=== PATIENT | male | born 1990 | race African-American/Black ===

== ENCOUNTER 2024-07-19 17:32 | Emergency (ER) | payer SELFPAY ==
[2024-07-19 17:38] VITALS: BP 146/78
[2024-07-19 18:26] LABS: ALT (SGPT) 20 U/L (0-50); AST (SGOT) 24 U/L (17-59); Albumin 4.8 g/dl (3.5-5.0); Alkaline Phosphatase 50 U/L (38-126); Blood Urea Nitrogen 10 mg/dl (9-20); Calcium 9.2 mg/dl (8.4-10.2); Carbon Dioxide 31 mmol/L (22-30); Chloride 99 mmol/L (98-107); Glucose 107 mg/dl (70-99); Potassium 4.1 mmol/L (3.5-5.1); Sodium 140 mmol/L (135-145); Total Bilirubin 0.7 mg/dl (0.2-1.3); Total Protein 7.5 g/dl (6.3-8.2); eGFR > 60.00
[2024-07-19 18:35] LABS: Troponin I < 0.012 ng/ml
[2024-07-19 18:45] LABS: % Basophils 0.4 % (0-2); % Eosinophils 3.2 % (0-6); % Lymphocytes 62.1 % (20.5-51.1); % Monocytes 6.3 % (1.7-9.3); Absolute Eosinophils 0.1 10^3/uL (0-0.7); Absolute Lymphocytes 1.8 10^3/uL (1.2-3.4); Absolute Monocytes 0.2 10^3/uL (0.1-0.6); Absolute Neutrophils 0.8 10^3/uL (1.4-6.5); Hematocrit 45.1 % (39.0-52.0); Hemoglobin 15.2 g/dL (13.0-18.0); Mean Corp Hgb Conc. 33.7 g/dL (33.0-37.0); Mean Corpuscular Hgb 28.4 pg (27.0-31.0); Mean Corpuscular Volume 84.3 fL (80.0-94.0); Mean Platelet Volume 10.4 fL (7.4-10.4); Nucleated Red Blood Cells % 0 % (-); Platelet Count 215 10^3/uL (130-400); Red Blood Cell Count 5.35 10^6/uL (4.70-6.10); Red Cell Dist. Width 12.4 % (11.5-14.5); White Blood Cell Count 2.9 10^3/uL (4.8-10.8)
[2024-07-19 19:36] VITALS: BP 139/88; BMI 28.8
[2024-07-19 20:00] VITALS: BP 115/72
[2024-07-19 21:00] VITALS: BP 124/73
--- NOTE | 2024-07-19 21:21 | ED.GENMED ---
History of Present Illness
General
Chief Complaint: Chest Pain
Source: patient
Exam Limitations: none
Time Seen by Provider: 07/19/24 19:44
History of Present Illness
History of Present Illness:
34-year-old male presents with 2 days of chest pain. States last night started become more constant though. Pain has been constant since then it is torn his left chest and the upper part of his chest but had some symptoms into his arm. No
shortness of breath. No belching. No fall. Recently started melatonin to help him sleep over the last couple days. Is unsure if it is related. No leg swelling or recent travel.
Past History
Past History
ED Past Medical History: Other (History of neutropenia and has seen hematology)
Social History
Tobacco: Non-smoker
Phy Exam
Physical Exam
Physical Exam:
CONSTITUTIONAL Patient alert and oriented to person, place and time. Well-appearing. Vital signs reviewed.
HEAD atraumatic, normocephalic.
EYES eyelids normal to inspection, Extraocular muscles intact, Conjunctiva normal, Sclera normal.
NECK normal range of motion, Trachea midline, no jugular venous distention.
RESPIRATORY CHEST No respiratory distress noted, Chest expansion equal, Bilateral breath sounds clear. No rash noted
CARDIOVASCULAR regular rate and rhythm, Heart sounds normal.
ABDOMEN abdomen nontender, Bowel sounds normal. No distention.
BACK normal inspection, no obvious deformities
UPPER EXTREMITY range of motion normal, Motor strength normal, no cyanosis, no edema.
LOWER EXTREMITY range of motion normal, Motor strength normal, no cyanosis, no edema.
NEURO Speech normal, No focal motor deficits, Aroda coma scale 15, Memory normal, Cranial Nerves intact to screening exam.
SKIN skin warm, dry, and normal in color.
Scores
Heart Score for Chest Pain Patients
STEMI patient?: No
History: Slightly or Non-Suspicious
ECG: Normal
Age: </= 45 years
Risk Factors: No Risk Factors
Troponin: </= Normal Limit
Heart Score for Chest Pain Patients: 0
Heart Score Risk: 2.5% MACE over next 6 weeks
Course
Orders/Labs/Results
Orders:
Orders
07/19/24 17:33
EKG [Electrocardiogram (*1)] Urgent
Reason for Study: Chest Pain
EKG- Treatment ONCE
07/19/24 17:40
Complete Blood Count/With Diff Urgent
Comprehensive Metabolic Panel Urgent
Troponin I Urgent
CR Chest - 2 Views Urgent
Comment:
Reason For Exam: chest pain
Abnormal Lab Results
07/19/24
17:40
WBC 2.9 L 10^3/uL
(4.8-10.8)
Absolute Neuts (auto) 0.8 L* 10^3/uL
(1.4-6.5)
Neutrophils % 28.0 L %
(42.2-75.2)
Lymphocytes % 62.1 H %
(20.5-51.1)
Carbon Dioxide 31 H mmol/L
(22-30)
Glucose 107 H mg/dl
(70-99)
07/19/24 17:40
07/19/24 17:40
Vital Signs
Initial and Last Documented VS:
Initial Vital Signs
Temp Pulse Resp BP Pulse Ox
98.2 F 62 20 146/78 99
07/19/24 17:38 07/19/24 17:38 07/19/24 17:38 07/19/24 17:38 07/19/24 17:38
Last Documented Vital Signs
Temp Pulse Resp BP Pulse Ox
98.2 F 62 12 115/72 99
07/19/24 17:38 07/19/24 20:15 07/19/24 20:15 07/19/24 20:00 07/19/24 20:15
MDM/Problems Addressed
MDM/Problems Addressed:
Chest pain
*Radiology
Radiology exam reviewed: all reviewed NAD by ED Provider
*Pulse Oximetry
Patient hypoxic: no
*EKG
Interpreted by ED Provider?: Yes
Interpretation: normal
Rate: normal
Rhythm: sinus
[place]: normal axis
Interval: normal interval
QRS Pattern: normal QRS
Ischemia: no ischemia
*[employer] Interpretation
Rate: normal
Interpretation: normal
Rhythm: sinus
*Critical Care Note
Total Time (30-74mins, 75-104mins- exclusive of procedures): Not Applicable
Data Reviewed
Source: patient
Further Testing Considered But Not Given:
Consider D-dimer but no PE risks
Patient Management
Escalation/DeEscalation of care consider admission/obs:
Patient appears well. Troponin negative despite more than 12 hours of pain. Pain has been constant. Neutropenia noted the patient states he has a history of it and was supposed to be on B12 but had not taken it in a while. Patient has seen
hematology in the past. Okay for discharge outpatient follow-up. I did recommend he have a repeat CBC in about 4 weeks after taking his B12. He will follow-up as an outpatient.
ED Attending Note
-
Portions of this chart may have been created with voice recognition software.� Occasional wrong word or��sound alike� substitutions may have occurred due to the inherent limitations of voice recognition software.
Discharge Plan
Departure
Patient Disposition: Home (Routine Discharge)
Date of Disposition: 07/19/24
Time of Disposition: 21:21
Patient with high blood pressure during this ER visit?: No
Discharge Problem:
Chest pain, Neutropenia
Instructions: Chest Pain PCP Follow Up
Prescriptions:
New
pantoprazole [Protonix] 40 mg tablet,delayed release (DR/EC)
40 mg PO DAILY Qty: 30 0RF
Rx Instructions:
Please take 30 minutes prior to eating or drinking anything in the morning.
Referrals:
Nery Solis MD [Family Provider] -
Activity Restrictions/Additional Instructions:
Return immediately for worsening symptoms, shortness of breath, fevers or any other concerns. Please see your doctor in the next 2 weeks for follow-up and reevaluation.
Interventions
Interventions:
*Risk Screen - Suicide Last Done: 07/19/24 19:38
*General Assessment Last Done: 07/19/24 17:38
*Neglect/Abuse Screening Last Done: 07/19/24 19:38
ED- Fall Risk Assessment Last Done: 07/19/24 19:38
*ED COVID-19 Vaccine History Last Done: 07/19/24 19:37
ED- Cardiac Assessment Last Done: 07/19/24 19:38
Discharge Date and Time
Print Language: SERBIAN
== END 2024-07-19 21:34 | disposition home or self-care (01) ==
LOC: EMR 17:32
PROVIDERS: Student in an Organized Health Care Education/Training Program; EMERGENCY PHYSICIAN Emergency Medicine; FAMILY PHYSICIAN Family Medicine
DX: R07.89 Other chest pain (principal); D70.9 Neutropenia, unspecified
CPT/HCPCS: 99283; 71046; 80053; 84484; 85025; 93005